=== PATIENT | male | born 1995 | race American Indian/Alaskan Native ===

== ENCOUNTER 2019-07-04 09:13 | Emergency (ER) | payer MEDICAID ==
--- NOTE | 2019-07-04 10:56 | Ultrasound Report ---
ULTRASOUND TESTICULAR DOPPLER COMPLETE HISTORY: Left testicle pain and swelling TECHNIQUE: Grayscale ultrasound with color and spectral Doppler interrogation. FINDINGS: The right testicle measures 5.5 x 2.1 x 3.1 cm. The left testicle measures 5.1 x 3.2 x 3.9 cm. The le ft testicle is slightly heterogeneous with hyperemia on color Doppler interrogation. No focal mass or calcifications. The right epididymis is unremarkable. The left epididymis appears mildly edematous and hyperemic on c olor Doppler interrogation. Trace simple appearing left hydrocele is noted. Spectral Doppler waveforms demonstrate arterial flow to both testicles. IMPRESSION: Acute left epididymoorchitis. Small left hydrocele. Signer Name: Jesus Manuel Burnett Jr, MD Signed: 07/04/2019 10:52 AM Workstation Name: [id number]
--- NOTE | 2019-07-04 12:11 | Emergency Department Report ---
<TONG VELEZ - Last Filed: 07/04/19 17:20> ED Male HPI - General Chief complaint: Urogenital-Male Stated complaint: FEVER/BODY ACHES Time Seen by Provider: 07/04/19 11:58 Source: patient Mode of arrival: Ambulatory Limitations: No Limitations - History of Present Illness Initial comments: 23-year-old -[place] male without significant past medical history complains of left testicular pain and swelling 3 days. He admits to dysuria, but denies any penile discharge/lesions or rectal pain. He rates his pain as a 8/10 in severity, however states he currently does not have any pain while lying still. He also admits to one episode of vomiting yesterday. Patient states he was trying to treat his symptoms with ibuprofen and Tylenol without success. He denies any history of HIV. MD Complaint: testicle pain, testicle swelling - Related Data Previous Rx's Medication Instructions Recorded Last Taken Type Doxycycline Monohydrate 100 mg PO BID 10 Days #20 capsule 07/04/19 Unknown Rx cephALEXin [Keflex] 500 mg PO Q12HR 5 Days #10 cap 07/04/19 Unknown Rx Allergies Allergy/AdvReac Type Severity Reaction Status Date / Time bee venom protein (honey bee) Allergy Swelling Verified 07/04/19 09:41 ED Review of Systems Constitutional: denies: chills, fever, malaise ENT: denies: throat pain Respiratory: denies: cough, shortness of breath Cardiovascular: denies: chest pain Gastrointestinal: nausea, vomiting. denies: abdominal pain, diarrhea Genitourinary: as per HPI, testicular pain Skin: denies: rash, lesions Neurological: denies: headache, weakness, paresthesias ED Past Medical Hx - Past Medical History Previous Medical History?: No - Surgical History Past Surgical History?: No - Social History Smoking Status: Never Smoker Substance Use Type: None - Medications Home Medications: Home Medications Medication Instructions Recorded Confirmed Last Taken Type Doxycycline Monohydrate 100 mg PO BID 10 Days #20 capsule 07/04/19 Unknown Rx cephALEXin [Keflex] 500 mg PO Q12HR 5 Days #10 cap 07/04/19 Unknown Rx ED Physical Exam - General Limitations: No Limitations (moderate ) General appearance: alert, in no apparent distress - Head Head exam: Present: atraumatic, normocephalic - Eye Eye exam: Present: normal appearance. Absent: scleral icterus - ENT ENT exam: Present: normal exam, normal orophraynx, mucous membranes moist - Neck Neck exam: Present: normal inspection - Respiratory Respiratory exam: Present: normal lung sounds bilaterally. Absent: respiratory distress - Cardiovascular Cardiovascular Exam: Present: regular rate, normal rhythm. Absent: systolic murmur, diastolic murmur, rubs, gallop - GI/Abdominal GI/Abdominal exam: Present: soft, normal bowel sounds. Absent: distended, tenderness, guarding, rebound, rigid - Rectal Rectal exam: Present: deferred - exam: Present: testicular tenderness, scrotal swelling (moderate swelling noted without erythema or lesions ) - Neurological Exam Neurological exam: Present: alert, oriented X3 - Psychiatric Psychiatric exam: Present: normal affect, normal mood - Skin Skin exam: Present: warm, dry, intact, normal color. Absent: rash ED Medical Decision Making - Lab Data Result diagrams: 07/04/19 13:01 07/04/19 13:01 Lab Results 07/04/19 07/04/19 07/04/19 Range/Units 13:01 13:01 14:00 WBC 22.9 H (4.5-11.0) K/mm3 RBC 5.04 H (3.65-5.03) M/mm3 Hgb 14.4 (11.8-15.2) gm/dl Hct 41.3 (35.5-45.6) % MCV 82 L (84-94) fl MCH 29 (28-32) pg MCHC 35 H (32-34) % RDW 12.0 L (13.2-15.2) % Plt Count 200 (140-440) K/mm3 Add Manual Diff Complete Total Counted 100 Seg Neuts % (Manual) 94.0 H (40.0-70.0) % Band Neutrophils % 0 % Lymphocytes % (Manual) 2.0 L (13.4-35.0) % Reactive Lymphs % (Man) 0 % Monocytes % (Manual) 3.0 (0.0-7.3) % Eosinophils % (Manual) 0 (0.0-4.3) % Basophils % (Manual) 1.0 (0.0-1.8) % Metamyelocytes % 0 % Myelocytes % 0 % Promyelocytes % 0 % Blast Cells % 0 % Nucleated RBC % Not Reportable Seg Neutrophils # Man 21.5 H (1.8-7.7) K/mm3 Band Neutrophils # 0.0 K/mm3 Lymphocytes # (Manual) 0.5 L (1.2-5.4) K/mm3 Abs React Lymphs (Man) 0.0 K/mm3 Monocytes # (Manual) 0.7 (0.0-0.8) K/mm3 Eosinophils # (Manual) 0.0 (0.0-0.4) K/mm3 Basophils # (Manual) 0.2 H (0.0-0.1) K/mm3 Metamyelocytes # 0.0 K/mm3 Myelocytes # 0.0 K/mm3 Promyelocytes # 0.0 K/mm3 Blast Cells # 0.0 K/mm3 WBC Morphology Not Reportable Hypersegmented Neuts Not Reportable Hyposegmented Neuts Not Reportable Hypogranular Neuts Not Reportable Smudge Cells Not Reportable Toxic Granulation Not Reportable Toxic Vacuolation Not Reportable Dohle Bodies Not Reportable Pelger-Huet Anomaly Not Reportable Rachel Rods Not Reportable Platelet Estimate Consistent w auto Clumped Platelets Not Reportable Plt Clumps, EDTA Not Reportable Large Platelets Not Reportable Giant Platelets Not Reportable Platelet Satelliting Not Reportable Plt Morphology Comment Not Reportable RBC Morphology Normal Dimorphic RBCs Not Reportable Polychromasia Not Reportable Hypochromasia Not Reportable Poikilocytosis Not Reportable Anisocytosis Not Reportable Microcytosis Not Reportable Macrocytosis Not Reportable Spherocytes Not Reportable Pappenheimer Bodies Not Reportable Sickle Cells Not Reportable Target Cells Not Reportable Tear Drop Cells Not Reportable Ovalocytes Not Reportable Helmet Cells Not Reportable [place] Bodies Not Reportable [place] Rings Not Reportable [place] Cells Not Reportable Bite Cells Not Reportable Crenated Cell Not Reportable Elliptocytes Not Reportable Acanthocytes (Spur) Not Reportable Rouleaux Not Reportable Hemoglobin C Crystals Not Reportable Schistocytes Not Reportable Malaria parasites Not Reportable Elian Bodies Not Reportable Hem Pathologist Commnt No Sodium 135 L (137-145) mmol/L Potassium 4.0 (3.6-5.0) mmol/L Chloride 97.7 L (98-107) mmol/L Carbon Dioxide 20 L (22-30) mmol/L Anion Gap 21 mmol/L BUN 10 (9-20) mg/dL Creatinine 1.1 (0.8-1.5) mg/dL Estimated GFR > 60 ml/min BUN/Creatinine Ratio 9 % Glucose 118 H (75-100) mg/dL Calcium 9.6 (8.4-10.2) mg/dL Urine Color Yellow (Yellow) Urine Turbidity Slightly-cloudy (Clear) Urine pH 8.0 H (5.0-7.0) Ur Specific [place] 1.016 (1.003-1.030) Urine Protein <15 mg/dl (Negative) mg/dL Urine Glucose (UA) Neg (Negative) mg/dL Urine Ketones Neg (Negative) mg/dL Urine Blood Mod (Negative) Urine Nitrite Neg (Negative) Urine Bilirubin Neg (Negative) Urine Urobilinogen 4.0 (<2.0) mg/dL Ur Leukocyte Esterase Lg (Negative) Urine WBC (Auto) 77.0 H (0.0-6.0) /HPF Urine RBC (Auto) 9.0 (0.0-6.0) /HPF Urine Yeast (Budding) Few /HPF - Radiology Data Radiology results: report reviewed ULTRASOUND TESTICULAR DOPPLER COMPLETE HISTORY: Left testicle pain and swelling TECHNIQUE: Grayscale ultrasound with color and spectral Doppler interrogation. FINDINGS: The right testicle measures 5.5 x 2.1 x 3.1 cm. The left testicle measures 5.1 x 3.2 x 3.9 cm. The left testicle is slightly heterogeneous with hyperemia on color Doppler interrogation. No focal mass or calcifications. The right epididymis is unremarkable. The left epididymis appears mildly edematous and hyperemic on color Doppler interrogation. Trace simple appearing left hydrocele is noted. Spectral Doppler waveforms demonstrate arterial flow to both testicles. IMPRESSION: Acute left epididymoorchitis. Small left hydrocele. - Medical Decision Making 23-year-old -[place] male without significant past medical history complains of left testicular pain and swelling 3 days. He admits to dysuria but denies penile discharge. UA shows UTI. WBCs are at 22,000. Patient is afebrile. Patient initially tachycardic at 126 bpm, now improved after 2 L of normal saline to 105. Patient was given IM Rocephin 500 mg and Doxy 100 mg orally. Patient states he is feeling well and denies any current pain. Patient is nontoxic appearing. He is stable for discharge home and follow-up with urology. Discussed very strict return precautions in detail with patient verbalizes understanding. ED Disposition Clinical Impression: Acute epididymo-orchitis Disposition: - TO HOME OR SELFCARE Condition: Stable Instructions: Epididymitis (ED), Urinary Tract Infection in Men (ED) Prescriptions: Doxycycline Monohydrate 100 mg PO BID 10 Days #20 capsule cephALEXin [Keflex] 500 mg PO Q12HR 5 Days #10 cap Referrals: PRIMARY CAREMD [Primary Care Provider] - 2-3 Days DESMOND SOLORIO MD [Staff Physician] - as needed ROSIE CASIANO MD [Staff Physician] - 2-3 Days [facility] [place][Note 3] [Outside] - as needed Forms: Accompanied Note, STI Treatment and Prevention, Work/School Release Form(ED) <KUMAR NAVARRO - Last Filed: 07/04/19 17:53> ED Review of Systems ROS: Stated complaint: FEVER/BODY ACHES Other details as noted in HPI ED Course Vital Signs 07/04/19 07/04/19 07/04/19 09:39 13:56 16:13 Temperature 98.4 F 99.8 F H 98.5 F Pulse Rate 128 H 112 H 121 H Respiratory 18 18 18 Rate Blood Pressure 138/90 Blood Pressure 136/79 116/63 [Left] O2 Sat by Pulse 94 100 97 Oximetry ED Medical Decision Making - Lab Data Result diagrams: 07/04/19 13:01 07/04/19 13:01 - Medical Decision Making Attestation: Available for consultation. Patient seen and evaluated with the midlevel and agree with assessment and plan. Critical care attestation.: If time is entered above; I have spent that time in minutes in the direct care of this critically ill patient, excluding procedure time. ED Disposition Is pt being admited?: No
[2019-07-04] MEDS: SODIUM CHLORIDE 0.9% 1000 ML 1,000 ML IV ONE ×2 (13:00→15:20)
[2019-07-04 13:18] LABS: Hematocrit 41.3 % (35.5-45.6); Hemoglobin 14.4 gm/dl (11.8-15.2); Mean Corpuscular HGB Conc 35 % (32-34); Mean Corpuscular Volume 82 fl (84-94); Platelet Count 200 K/mm3 (140-440); Red Blood Count 5.04 M/mm3 (3.65-5.03)
[2019-07-04 13:34] LABS: BUN/Creatinine Ratio 9; Blood Urea Nitrogen 10 mg/dL (9-20); Calcium 9.6 mg/dL (8.4-10.2); Hemolysis Index 6
[2019-07-04 14:16] LABS: Eosinophils % (Manual) 0 % (0.0-4.3); RBC Morphology Normal; Total Cells Counted 100
[2019-07-04 14:17] LABS: Platelet Estimate Consistent w Auto
[2019-07-04 14:46] LABS: Bilirubin,Urine NEG (Negative); Blood,Urine MOD (Negative); Color,Urine Yellow (Yellow); Protein,Urine <15 mg/dL mg/dL (Negative)
[2019-07-04] MEDS: LIDOCAINE-MPF (1%) 10 MG/1 ML VIAL 5 ML INFILTRATI ONE ×2 (15:19)
[2019-07-04] MEDS: KETOROLAC 30 MG/1 ML INJ IV ONE (15:20)
[2019-07-04 16:14] VITALS: BP 116/63
[2019-07-04] MEDS: DOXYCYCLINE 100 MG CAPSULE PO ONE (16:14)
== END 2019-07-04 17:46 | disposition home or self-care (01) ==
LOC: ED 09:13
DX: N45.3 Epididymo-orchitis (principal); R11.10 Vomiting, unspecified; Z79.899 Other long term (current) drug therapy; Z91.030 Bee allergy status
CPT/HCPCS: 36415; 80048; 81001; 85007; 85025; 87040; 87086; 87591; 93975; 96361; 96372; 96374; 99284; J0696; J1885; J7030